=== PATIENT | male | born 1955 | race Hispanic/Latino ===

== ENCOUNTER 2020-08-17 16:45 | Emergency (ER) | payer OTHER ==
--- NOTE | 2020-08-17 18:47 | Event Note ---
ED Screening Note ED Screening Note: injured r index finger on machine at work small lac neurovasc intact This initial assessment/diagnostic orders/clinical plan/treatment(s) is/are subject to change based on patients health status, clinical progression and re- assessment by fellow clinical providers in the ED. Further treatment and workup at subsequent clinical providers discretion. Patient/guardian urged not to elope from the ED as their condition may be serious if not clinically assessed and managed. Initial orders include: xr wound care
[2020-08-17 18:50] VITALS: BP 134/71
--- NOTE | 2020-08-17 19:14 | XRay Report ---
RIGHT INDEX FINGER 3 VIEWS INDICATION: Right index finger pain after injury. COMPARISON: No relevant prior imaging study available. FINDINGS: No fracture or dislocation is seen. There is soft tissue swelling. No radiodense foreign bodies. IMPRESSION: 1. No acute skeletal abnormality. Signer Name: Jerod Joel MD Signed: 08/17/2020 7:09 PM Workstation Name: [id number]
[2020-08-17] MEDS ORDERED: NEOMY 3.5 MG/BACIT 400 UNITS/POLY B 5000 UNITS/GM OINT PACKET TP ONE (19:23)
[2020-08-17] MEDS ORDERED: SODIUM CHLORIDE 0.9% IRR 500 ML BOTTLE IR ONE (19:23)
[2020-08-17] MEDS ORDERED: TETANUS,DIPH,PERTUSS(ACELL) VACCINE 0.5 ML SYRINGE IM ONE (19:23)
[2020-08-17] MEDS ORDERED: cephALEXin 500 MG CAP PO ONE (19:23)
[2020-08-17] MEDS ORDERED: HYDROcodone/ACETAMINOPHEN 5-325 MG TAB PO ONE (19:23)
--- NOTE | 2020-08-17 19:23 | Emergency Department Report ---
- General Chief complaint: Extremity Injury, Upper Stated complaint: RIGHT INDEX FINGER INJURY Time Seen by Provider: 08/17/20 18:48 Source: patient Mode of arrival: Ambulatory Limitations: No Limitations - History of Present Illness Initial comments: 65 yo male comes to er p cutting his r index finger on equipment at work. Reports piece of skin coming off. Full ROM. bleeding controlled on arrival. complaint: laceration -: Sudden, hour(s) Tetanus Up to Date: no Location: R hand Severity: mild Quality: burning Consistency: constant Improves with: none Worsens with: none Context: none Associated symptoms: denies other symptoms Treatments Prior to Arrival: none - Related Data Previous Rx's Medication Instructions Recorded Last Taken Type cephALEXin [Keflex] 500 mg PO Q12HR #20 cap 08/17/20 Unknown Rx traMADoL [Ultram] 50 mg PO Q6HR PRN #10 tablet 08/17/20 Unknown Rx Allergies Allergy/AdvReac Type Severity Reaction Status Date / Time No Known Allergies Allergy Unverified 08/17/20 18:48 Abscess Boil HPI - HPI Chief Complaint: Extremity Injury, Upper Stated Complaint: RIGHT INDEX FINGER INJURY Time Seen by Provider: 08/17/20 18:48 Home Medications: Previous Rx's Medication Instructions Recorded Last Taken Type cephALEXin [Keflex] 500 mg PO Q12HR #20 cap 08/17/20 Unknown Rx traMADoL [Ultram] 50 mg PO Q6HR PRN #10 tablet 08/17/20 Unknown Rx Allergies/Adverse Reactions: Allergies Allergy/AdvReac Type Severity Reaction Status Date / Time No Known Allergies Allergy Unverified 08/17/20 18:48 ED Review of Systems ROS: Stated complaint: RIGHT INDEX FINGER INJURY Other details as noted in HPI Comment: All other systems reviewed and negative ED Past Medical Hx - Past Medical History Previous Medical History?: No - Surgical History Past Surgical History?: Yes Additional Surgical History: jaw - Family History Family history: no significant - Social History Smoking Status: Never Smoker Substance Use Type: None - Medications Home Medications: Home Medications Medication Instructions Recorded Confirmed Last Taken Type cephALEXin [Keflex] 500 mg PO Q12HR #20 cap 08/17/20 Unknown Rx traMADoL [Ultram] 50 mg PO Q6HR PRN #10 tablet 08/17/20 Unknown Rx ED Physical Exam - General Limitations: No Limitations General appearance: alert, in no apparent distress - Head Head exam: Present: atraumatic, normocephalic - Eye Eye exam: Present: normal appearance - ENT ENT exam: Present: mucous membranes moist - Neck Neck exam: Present: normal inspection - Respiratory Respiratory exam: Present: normal lung sounds bilaterally. Absent: respiratory distress - Cardiovascular Cardiovascular Exam: Present: regular rate, normal rhythm. Absent: systolic murmur, diastolic murmur, rubs, gallop - GI/Abdominal GI/Abdominal exam: Present: soft, normal bowel sounds - Rectal Rectal exam: Present: deferred - Extremities Exam Extremities exam: Present: normal inspection - Back Exam Back exam: Present: normal inspection - Neurological Exam Neurological exam: Present: alert, oriented X3 - Psychiatric Psychiatric exam: Present: normal affect, normal mood - Skin Skin exam: Present: warm, dry, other (r index finger avulsion wound). Absent: rash - Expanded Skin Exam Expanded 1 - superior surface of right index finger avulsed; rapid cap refill; full ROM ED Course Vital Signs 08/17/20 18:47 Temperature 98.1 F Pulse Rate 77 Respiratory 18 Rate Blood Pressure 134/71 O2 Sat by Pulse 98 Oximetry ED Medical Decision Making - Radiology Data Radiology results: report reviewed, image reviewed no fx - Medical Decision Making xray nap wound care provided keflex po tdap updated instructed on wound care neurovasc intact; full ROM of finger Vital Signs 08/17/20 18:47 Temperature 98.1 F Pulse Rate 77 Respiratory 18 Rate Blood Pressure 134/71 O2 Sat by Pulse 98 Oximetry dc home with dc plan of care including wound care, rx and follow up. Pt verbalizes understanding of plan of care. - Differential Diagnosis ro open fx Critical care attestation.: If time is entered above; I have spent that time in minutes in the direct care of this critically ill patient, excluding procedure time. ED Disposition Clinical Impression: Avulsion of skin of finger Disposition: DC-01 TO HOME OR SELFCARE Is pt being admited?: No Does the pt Need Aspirin: No Condition: Stable Instructions: Wound Care, Adult Additional Instructions: KEEP WOUND CLEAN AND DRY STARTING IN THE AM TAKE THE DRESSING OFF. WASH WITH SOAP AND WATER AND APPLY NEOSPORIN CREAM AND WRAP IN GUAZE. THE WOUND WILL HEAL FROM THE INSIDE OUT XRAY SHOWS NO FRACTURE TODAY REST ICE ELEVATE TONIGHT WILL HELP WITH PAIN MEDS ORDERED TODAY UNTIL GONE FOLLOW UP WITH WORK COMP MD OR PCP MD EARLY NEXT WEEK FOR A RECHECK Prescriptions: cephALEXin [Keflex] 500 mg PO Q12HR #20 cap traMADoL [Ultram] 50 mg PO Q6HR PRN #10 tablet PRN Reason: Pain Referrals: ELLA NELSON MD [Staff Physician] - 3-5 Days Forms: Work/School Release Form(ED) Time of Disposition: 19:23
== END 2020-08-17 19:40 | disposition home or self-care (01) ==
LOC: ED 16:45
DX: S61.200A Unspecified open wound of right index finger without damage to nail, initial encounter (principal); Z98.890 Other specified postprocedural states; Z79.899 Other long term (current) drug therapy; W26.8XXA Contact with other sharp object(s), not elsewhere classified, initial encounter; Y93.89 Activity, other specified; Y92.89 Other specified places as the place of occurrence of the external cause; Y99.8 Other external cause status
CPT/HCPCS: 73140; 90471; 90715; 99283; A6250